=== PATIENT | female | born 1960 | race Caucasian/White ===

== ENCOUNTER 2016-07-07 00:02 | Emergency (ER) | payer OTHER, BC ==
[~2016-07-07] VITALS: Ht 162.6 cm; Wt 105.4 kg
[2016-07-07 02:52] VITALS: BP 135/101
== END 2016-07-07 02:52 | disposition home or self-care (01) ==
LOC: EME 00:02
DX: S20.212A Contusion of left front wall of thorax, initial encounter (principal); S80.12XA Contusion of left lower leg, initial encounter; E78.5 Hyperlipidemia, unspecified; I10 Essential (primary) hypertension; W18.30XA Fall on same level, unspecified, initial encounter; Y99.0 Civilian activity done for income or pay; Y92.239 Unspecified place in hospital as the place of occurrence of the external cause; Z87.891 Personal history of nicotine dependence
CPT/HCPCS: 71101; 99281; 99284